=== PATIENT | male | born 1955 | race Two or more races ===

== ENCOUNTER 2021-04-03 21:22 | Inpatient (IN) | payer SELFPAY ==
[~2021-04-03] VITALS: Ht 167.6 cm; Wt 69.4 kg
[2021-04-03] MEDS ORDERED: SODIUM CHLORIDE 0.9% 1000ML BAG (SEPSIS BOLUS) IV ONE (22:45)
[2021-04-03 23:11] LABS: BASOPHILS % 0.2 % (0.0-2.0); HEMATOCRIT. 41.3 % (42.0-52.0); HEMOGLOBIN. 13.9 g/dL (14.0-18.0); LYMPHOCYTES % 13.8 % (20.0-50.0); MEAN CORPUSCULAR HEMOGLOBIN 28.9 pg (28.0-32.0); MEAN PLATELET VOLUME 8.5 fl (7.4-10.4); MONOCYTES % 7.5 % (2.0-8.0); NEUTROPHILS % 78.5 % (40.0-76.0); PLATELET 127 x1000/uL (130-400); RED BLOOD CELL COUNT 4.81 mill/uL (4.7-6.1); RED CELL DISTRIBUTION WIDTH 13.9 % (11.6-14.6)
[2021-04-03 23:15] LABS: CHLORIDE 105 mEq/L (98-107)
[2021-04-03 23:16] LABS: CLARITY URINE CLEAR (CLEAR); COLOR URINE YELLOW (YELLOW); KETONES URINE NEGATIVE (NEGATIVE); LEUKOCYTE ESTERASE URINE NEGATIVE (NEGATIVE); NITRITE URINE NEGATIVE (NEGATIVE); OCCULT BLOOD URINE 1+ (NEGATIVE); PH URINE 5.5 (4.5-8.0); PROTEIN URINE 1+ (NEGATIVE); SPECIFIC GRAVITY URINE 1.022 (1.005-1.030)
[2021-04-03 23:18] LABS: INR 1.2; PROTHROMBIN TIME 12.4 sec (9.6-11.0)
[2021-04-03] MEDS ORDERED: CEFTRIAXONE 1 G PREMIX 50 ML IV SCH (23:45)
[2021-04-03] MEDS ORDERED: AZITHROMYCIN 500MG/250ML 250 ML IV SCH (23:45)
[2021-04-04] MEDS ORDERED: DEXT 5%/0.45% NACL 1000ML 1,000 ML IV SCH (02:45)
[2021-04-04] MEDS ORDERED: ZOLPIDEM TARTRATE 5MG TABLET PO PRN (02:45)
[2021-04-04] MEDS ORDERED: ACETAMINOPHEN 325MG TABLET PO PRN ×2 (02:45)
[2021-04-04] MEDS ORDERED: DIPHENHYDRAMINE 50MG/ML VIAL IV PRN (02:45)
[2021-04-04] MEDS ORDERED: ONDANSETRON HCL 4MG/2ML INJ IV PRN (02:45)
[2021-04-04] MEDS ORDERED: LEVOFLOXACIN 500MG PREMIX 100 ML IV SCH (03:00)
[2021-04-04 10:00] VITALS: BP 109/57
[2021-04-04 10:40] VITALS: BP 109/57
[2021-04-04 11:54] VITALS: BP 109/57
[2021-04-04] MEDS: GUAIFENESIN 600MG ER TABLET PO SCH ×2 (12:23→20:54)
[2021-04-04 15:49] VITALS: BP 100/67
[2021-04-04] MEDS: PROMETHAZINE/DEXTROMETHORPHAN 6.25-15MG/5ML BOTTLE 120ML PO PRN (18:06)
[2021-04-04] MEDS: LORATADINE 10MG TABLET PO SCH (18:30)
[2021-04-04 20:22] VITALS: BP 98/58
[2021-04-04] MEDS ORDERED: GUAIFENESIN 600MG ER TABLET PO SCH (21:00)
[2021-04-04] MEDS ORDERED: TEMAZEPAM 15MG CAPSULE PO SCH (21:00)
[2021-04-05] MEDS ORDERED: AZITHROMYCIN 500 MG in DEXT 5% WATER 250 ML IV SCH
[2021-04-05 00:27] VITALS: BP 93/58
[2021-04-05] MEDS ORDERED: LEVOFLOXACIN 250MG PREMIX 50 ML IV SCH (03:00)
[2021-04-05 04:34] VITALS: BP 99/65
[2021-04-05 05:42] LABS: BASOPHILS % 0.7 % (0.0-2.0); EOSINOPHILS % 0.4 % (0.0-5.0); HEMOGLOBIN. 14.1 g/dL (14.0-18.0); LYMPHOCYTES % 43.5 % (20.0-50.0); MEAN CORPUSCULAR HEMOGLOBIN 28.4 pg (28.0-32.0); MEAN CORPUSCULAR VOLUME 84.6 fL (80.0-94.0); MEAN PLATELET VOLUME 8.5 fl (7.4-10.4); MONOCYTES % 11.1 % (2.0-8.0); NEUTROPHILS % 44.3 % (40.0-76.0); PLATELET 79 x1000/uL (130-400); RED BLOOD CELL COUNT 4.96 mill/uL (4.7-6.1); RED CELL DISTRIBUTION WIDTH 14.1 % (11.6-14.6)
[2021-04-05 06:21] LABS: CHLORIDE 107 mEq/L (98-107)
[2021-04-05 07:53] VITALS: BP 104/63
[2021-04-05] MEDS: PROMETHAZINE/DEXTROMETHORPHAN 6.25-15MG/5ML BOTTLE 120ML PO PRN (09:19)
[2021-04-05] MEDS: GUAIFENESIN 600MG ER TABLET PO SCH (09:19)
[2021-04-05] MEDS: LORATADINE 10MG TABLET PO SCH (09:19)
[2021-04-05 11:33] VITALS: BP 109/67
[2021-04-05 15:24] VITALS: BP 109/64
== END 2021-04-05 16:09 | disposition home or self-care (01) | DRG 720 ==
LOC: ER 21:22 → MICUSO 04-04 00:17 → 6WST 04-04 09:35
PROVIDERS: ADMIT Internal Medicine; ATTEND Internal Medicine
DX: A41.9 Sepsis, unspecified organism (principal); J96.01 Acute respiratory failure with hypoxia; N17.9 Acute kidney failure, unspecified; D69.6 Thrombocytopenia, unspecified; J18.9 Pneumonia, unspecified organism; Z20.822 Contact with and (suspected) exposure to COVID-19; G47.00 Insomnia, unspecified; R74.01 Elevation of levels of liver transaminase levels; E86.0 Dehydration; N18.9 Chronic kidney disease, unspecified
CPT/HCPCS: 36415; 71045; 80048; 80053; 81003; 83605; 83615; 83880; 84145; 84484; 85025; 85379; 85384; 87426; 87804; 93005; 99291; J0456; J0696; J1956; J7030